=== PATIENT | female | born 2000 | race Hispanic/Latino ===

== ENCOUNTER 2022-08-14 14:03 | Emergency (ER) | payer BC ==
[~2022-08-14] VITALS: Ht 149.9 cm; Wt 74.8 kg
[2022-08-14 15:30] VITALS: BP 116/70
== END 2022-08-14 15:34 | disposition home or self-care (01) ==
LOC: EDH 14:03
DX: S51.812D Laceration without foreign body of left forearm, subsequent encounter (principal); J45.909 Unspecified asthma, uncomplicated; Z88.0 Allergy status to penicillin; Z88.1 Allergy status to other antibiotic agents; X58.XXXD Exposure to other specified factors, subsequent encounter
CPT/HCPCS: 99281